=== PATIENT | male | born 1995 | race Caucasian/White ===

== ENCOUNTER 2023-05-03 07:21 | Emergency (ER) | payer BC, SELFPAY ==
[2023-05-03 07:24] VITALS: BP 172/96
--- NOTE | 2023-05-03 09:36 | ED.GENMED ---
History of Present Illness
General
Chief Complaint: Eye Problems
Source: patient
Exam Limitations: none
Time Seen by Provider: 05/03/23 08:20
Nursing documentation reviewed up to this point in time: agreed with
Travel History
Have you had any contact with someone who has COVID-19?: No
Do you have any symptoms of coronavirus? Fever > 100 degrees, chills, cough, shortness of breath, sore throat, loss of taste or smell, muscle aches, or headache?: No
History of Present Illness
History of Present Illness:
Patient is a 27-year-old male who presents to the ER for evaluation of right eyelid swelling. Patient reports for the past couple days he has noticed some mild discomfort in his right upper eyelid. Yesterday he started with swelling went to urgent
care and was given antibiotics. He took 1 dose of cefdinir last night 1 dose this morning. This morning however he woke up with increased swelling to his right upper eyelid and because of this his eye seemed swollen shut. He denies any actual
drainage. He denies any actual inner eye pain. He complains of sensitivity and discomfort to the right upper eyelid only. He denies any fever chills
Review of Systems
Review of Systems
Allergies reviewed?: Yes
All Other Systems: ROS reviewed and negative except as documented in HPI and ROS
Constitutional: Reports no symptoms; Denies fever, fatigue or chills
EENT: Reports other (right upper eyelid swelling/redness denies actual eye pain/decreased vision )
Respiratory: Reports no symptoms
Cardiac: Reports no symptoms
ABD/GI: Reports no symptoms
Musculoskeletal: Reports no symptoms
Skin: Reports no symptoms
Neurological: Reports no symptoms
Psychiatric: Reports no symptoms
Phy Exam
General Physical Exam
General Presentation: no apparent distress
General age: appears stated age
General Skin: warm and dry
General Habitus: normal
General Mental: alert
General Hydration: appears well hydrated
Eye Exam
Eye Exam: PERRL, EOMI, conjunctiva normal and other (Right upper eyelid with mild erythema and swelling eye itself with clear conjunctiva no drainage;no surrounding erythema to face )
Eye Exam General: PERRL: bilateral and EOM intact: bilateral
Pupil Exam: Bilateral: round and reactive
Neurological Exam
Neurological Exam: alert and oriented x3
Musculoskeletal Exam
Musculoskeletal Exam: full ROM
Skin Exam
Skin Exam: normal color and warm/dry
Psychiatric Exam
Psychiatric Exam: normal mood/affect
Course
Vital Signs
Initial and Last Documented VS:
Initial Vital Signs
Temp Pulse Resp BP Pulse Ox
99.1 F 73 18 172/96 100
05/03/23 07:24 05/03/23 07:24 05/03/23 07:24 05/03/23 07:24 05/03/23 07:24
Last Documented Vital Signs
Temp Pulse Resp BP Pulse Ox
99.1 F 73 18 172/96 100
05/03/23 07:24 05/03/23 07:24 05/03/23 07:24 05/03/23 07:24 05/03/23 07:24
MDM/Problems Addressed
Differential Diagnosis Includes:
Not limited to blepharitis, less likely orbital cellulitis
MDM/Problems Addressed:
Symptoms are consistent with blepharitis. Patient is on cefdinir however only has taken 2 doses. Will DC with erythromycin ointment in addition to cefdinir, discussed eyelid massage warm compresses and close outpatient follow-up with
ophthalmology. Patient is nontoxic no actual inner eye complaints. Cornea is clear there is no injection. Patient denies any fevers. He is nontoxic. No clinical findings concerning for orbital cellulitis.
Will DC on erythromycin ophthalmic ointment in addition to his oral cefdinir close outpatient methodology as needed discussed to return if any worsening symptoms
*Critical Care Note
Total Time (30-74mins, 75-104mins- exclusive of procedures): Not Applicable
ED Attending Note
-
Portions of this chart may have been created with voice recognition software.� Occasional wrong word or��sound alike� substitutions may have occurred due to the inherent limitations of voice recognition software.
Discharge Plan
Departure
Patient Disposition: Home (Routine Discharge)
Date of Disposition: 05/03/23
Time of Disposition: 09:38
Patient with high blood pressure during this ER visit?: Yes
Condition: Fair
Discharge Problem:
Blepharitis
Instructions: Blepharitis
Prescriptions:
New
erythromycin 5 mg/gram (0.5 %) ointment
1 applic ophthalmic (eye) Q6H Qty: 3.5 0RF
Rx Instructions:
Instill 1 cm ribbon of ointment into right eye every 6 hours
Referrals:
Palmer Heard MD [Active] -
Homer Galicia PA-C [Family Provider] -
Activity Restrictions/Additional Instructions:
Continue antibiotics as previously prescribed. In addition a prescription for erythromycin ophthalmic ointment was sent to your pharmacy. Instill 1 cm ribbon into your right eye 4 times daily. Follow-up with ophthalmology in the next several
days. return if any worsening of symptoms if increased redness around the eye pain fever chills.
Interventions
Interventions:
*Risk Screen - Suicide Last Done: 05/03/23 09:59
*General Assessment Last Done: 05/03/23 09:59
*Neglect/Abuse Screening Last Done: 05/03/23 09:59
*ED COVID-19 Vaccine History Last Done: 05/03/23 07:24
*Nursing Disposition Last Done: 05/03/23 09:59
Discharge Date and Time
Discharge Date/Time: 05/03/23 09:59
== END 2023-05-03 09:59 | disposition home or self-care (01) ==
LOC: EMR 07:21
PROVIDERS: EMERGENCY PHYSICIAN Emergency Medicine; FAMILY PHYSICIAN Physician Assistant Medical
DX: H01.001 Unspecified blepharitis right upper eyelid (principal)
CPT/HCPCS: 99282

== ENCOUNTER → 2023-12-29 12:00 | Outpatient (REF) | payer BC, SELFPAY | LOC: DHSLP 12:00 | PROVIDERS: ATTENDING PHYSICIAN Internal Medicine; FAMILY PHYSICIAN Physician Assistant Medical | DX: G47.19 Other hypersomnia (principal); R06.83 Snoring | CPT/HCPCS: 95800 ==